=== PATIENT | female | born 1955 | race Caucasian/White ===

== ENCOUNTER 2016-06-14 00:17 | Day surgery (SDC) | payer OTHER ==
[~2016-06-14] VITALS: Ht 167.6 cm; Wt 80.9 kg
[~2016-06-14 00:17] MED LIST: AMLO5TAB2 PO; FLUC150T48 PO; MUPI22OI2 TOP; OXYC5TAB72 PO
[2016-06-14] MEDS ORDERED: Lactated Ringer's 1,000 ML IV SCH (05:00)
--- NOTE | 2016-06-14 15:57 | DRSVH ---
PROCEDURE: X-RAY KUB ([id number]) INDICATIONS: POST CONTRAST ADMINISTRATION TECHNIQUE: One view of the abdomen acquired. COMPARISON: [facility], CT, CT ABD PELVIS W CON, 05/30/2016, 12:08. [facility], CR, XR KUB, 06/06/2016, 14:15. [facility], CR, XR KUB, 09/12/2015, 12:19. FINDINGS: Surgical changes and devices: None. Bowel: Bowel gas pattern is normal. Small amount of residual enteric contrast is present. Soft tissues: No suspicious abdominal calcifications. Visualized solid organ contours appear normal in size. Bones: No suspicious bony lesions. IMPRESSION: No acute process. Enteric contrast is present. Dictated by: Kymberly Camacho M.D. on 06/14/2016 at 15:55 Approved by: Kymberly Camacho M.D. on 06/14/2016 at 15:56
[2016-06-14 17:45] VITALS: BP 153/77; PULSE 73; RESP 16; O2SAT 99
[2016-06-14] MEDS ORDERED: 0.9% Sodium Chloride 500 ML ONE (17:51)
--- NOTE | 2016-06-14 18:05 | NUR ---
VIC Patient brought to [facility] in WC from endo at 1720 for mendez placement. Friend at bedside. Patient denies pain. 16 English Mendez placed without problem. Patient to CT at 1755. Will discharge from [facility] when procedure complete.
--- NOTE | 2016-06-14 18:49 | DRSVH ---
PROCEDURE: CT ABDOMEN AND PELVIS WITH CONTRAST ([id number]) INDICATIONS: CT CYSTOGRAM TO EVALUATE FOR ENTEROVESICAL FISTULA TECHNIQUE: After the administration of intravenous contrast, 5 mm thick sections acquired from the diaphragm to the symphysis. 5 mm coronal and sagittal reformats were acquired. For radiation dose reduction, the following was used: automated exposure control, adjustment of mA and/or kV according to patient neftali kraft COMPARISON: [facility], CT, CT ABD PELVIS W CON, 05/30/2016, 12:08. FINDINGS: Image quality: Excellent. ABDOMEN: Lung bases: Lung bases are clear. Heart size is normal. Solid organs: Hepatic steatosis otherwise liver and spleen are normal in size and enhancement. Gallb ladder negative. Biliary system is non dilated. Pancreas enhances normally. No adrenal nodules. K idneys demonstrate normal size and enhancement, without hydronephrosis. Presumed bilateral renal cys ts although many of these are too small to characterize definitively. Peritoneum and bowel: There is a right-sided ostomy. No free fluid or free air. No bowel obstruction Nodes and vessels: No retroperitoneal or mesenteric adenopathy by size criteria. Aorta and inferior vena cava are normal in size. Miscellaneous: No ventral hernias. PELVIS: Genitourinary: Lawler catheter is present and the bladder is distended with contrast material. No def inite extraluminal contrast or contrast opacified tract to the bowel is identified. Uterine calcifica tions are noted presumably related to fibroids. Miscellaneous: No inguinal hernias or adenopathy. Bones: No suspicious bony lesions. No vertebral body compression fractures. IMPRESSION: No CT evidence of enterovesical fistula. Hepatic steatosis. Presumed bilateral renal cysts. Dictated by: Jimmy Salazar M.D. on 06/14/2016 at 18:42 Approved by: Jimmy Salazar M.D. on 06/14/2016 at 18:47
--- NOTE | 2016-06-14 20:01 | PCM.PNSURG ---
Subjective Visit Information: Reason for Visit Sigmoid Diverticulitis/Eval Enterovesical Fistula Surgery/Surgery Date Post-Op Day # Date of Admission: Hospital Day # Subjective: 60yof who had findings suggestive of enterovesical fistula on a contrast enema after sigmoid colectomy with diverting loop ileostomy. She has been stable. Contrast enema was poorly tolerated per rectum so she is here today to get enemas through the downstream lumen of her loop ileostomy to clear the residual contrast in her cecum in anticipation of CT cystogram later today. Objective Vital Sign- Last 8 Hours Date Time Temp Pulse Resp B/P Pulse Ox O2 Delivery O2 Flow Rate FiO2 06/14/16 17:45 36.5 73 16 153/77 99 Room Air General: Alert, Oriented X3, Cooperative Abdomen: Soft, Ostomy Assessment & Plan Impression Ileostomy present Problems: Plan One fleet enema was administered. KUB Xray revealed movement of contrast into the transverse colon but not complete evacuation. 3 additional fleet enemas were administered. CT cystogram was then performed successfully revealing no sign of enterovesical fistula. Nhi Christiansen MD Jun 14, 2016 20:01
[2016-09-27] MEDS ORDERED: PANT40TA3 PO (15:41)
[2016-09-27] MEDS ORDERED: OXYC1TAB24 PO (15:41)
[2016-09-27] MEDS ORDERED: GABA-502 PO (15:41)
[2016-09-27] MEDS ORDERED: FERR-83 PO (15:41)
[2016-09-27] MEDS ORDERED: LISI1TAB7 PO (15:41)
== END 2016-06-14 23:59 | disposition home or self-care (01) ==
LOC: SOUO 00:17
PROVIDERS: ATTEND Radiology Diagnostic Radiology
DX: R93.41 Abnormal radiologic findings on diagnostic imaging of renal pelvis, ureter, or bladder (principal); K57.32 Diverticulitis of large intestine without perforation or abscess without bleeding; Z93.2 Ileostomy status
CPT/HCPCS: 74000; 74177; Q9967

== ENCOUNTER 2016-09-16 18:40 | Emergency (ER) | payer OTHER ==
[~2016-09-16] VITALS: Ht 167.6 cm; Wt 85.5 kg
[2016-09-16 18:56] VITALS: BP 144/86; PULSE 67; RESP 20; O2SAT 99
--- NOTE | 2016-09-16 19:23 | ED.REPORT ---
HPI-Abd Pain F 40 and Over Date of Service September 16, 2016 ED Provider: Dr. Richard Richard D.O. A 60 year old female with a medical history including hypertension, GERD, and diverticulitis s/p sigmoid colectomy with ileostomy (03/2016) presents to the ED with pain around her ileostomy site onset two weeks ago. The pain is relieved with sitting. The patient recently began working, sooner than her surgeon recommended, and her job requires excessive walking and time on her feet. She is scheduled for a take-down of her ileostomy in the near future. The patient was seen at Urgent Care last week, with no relief. She denies hematochezia or other symptoms and her ileostomy pouch is draining normally. Nursing Notes Stated Complaint: OSTOMY PAIN Chief Complaint: Female Abdominal Pain Nursing Notes Reviewed: Yes Allergies: Coded Allergies: codeine (Verified Allergy, Severe, Itching, DIZZINESS, NAUSEA, 06/13/16) Scheduled Amlodipine (Amlodipine) 5 Mg Tablet 5 MG PO DAILY Fluconazole (Diflucan) 150 Mg Tablet 150 MG PO ONCE Mupirocin (Mupirocin Ointment) 22 Gm Oint...g. 1 APPLIC TOP BID Scheduled PRN oxyCODONE (oxyCODONE) 5 Mg Tablet 5 MG PO Q4H PRN PRN For Pain General Time Seen by MD: 19:22 Chief Complaint Abdominal pain (Around Ileostomy Site) Hx Obtained From: Patient Arrived By: Walk-in Sudden in Onset?: No Onset Occurred: More than a week ago... (2 weeks) Symptom Duration: Since onset Location: : RLQ Quality: Painful Severity: Current: Moderate Severity: Maximum: Moderate Relieved by: Certain positions (Sitting) Context Related History: Reports: Abdominal surgery, Diverticulosis, GERD Recent Healthcare: No recent doctor visit Past Medical History Past Medical History Hypertension Isolated seizure Diverticulitis GERD Sciatica Anxiety Depression Reports: Diverticulitis Past Surgical History 1. Laparoscopic converted to open sigmoid colectomy with primary anastomosis. 2. Laparoscopic splenic flexure takedown. 3. Excision of anastomosis. 4. Diverting loop ileostomy. 5. Rectus sheath block with Exparel. Reports: Smoking History Current Every Day Smoker, Unknown if Ever Smoker Social History Alcohol Use: "Social" Ambulatory Status Independent Review of Systems + Pain around her ileostomy site Constitutional: Denies: Fever Respiratory: Denies: Non-productive cough, Shortness of breath GI: Reports: Abdominal pain, Denies: Diarrhea, Hematochezia, Vomiting Complete sys rev & neg: except as marked. Physical Exam Vital Signs Vital Signs (First) Date Time Temp Pulse Resp B/P Pulse Ox O2 Delivery O2 Flow Rate FiO2 09/16/16 18:56 36.7 67 20 144/86 99 Room Air Initial VS: Reviewed Head / Eyes: Atraumatic, Normocephalic ENT: Conjunctiva normal, No scleral icterus Neck: Supple, Full range of motion Skin: Warm, Dry, No cyanosis Neurologic: Alert, Oriented, Nonfocal Psychiatric: Mood/affect normal, Behavior normal, Normal thought content General/Constitutional: Awake, Alert Respiratory / Chest: Breath sounds NL, Breath sounds = bilat, No respiratory distress Cardiovascular: Heart rate NL, Regular rhythm, Heart sounds NL Abdomen: Soft Patient is tender around her ostomy site but it is draining well and there are no signs of infection Interpretation & Diagnostics URINE DIPSTICK: Bedside Urine Specific [place] * 1.020 Bedside Urine pH * 5 Bedside Urine Leukocyte Esterase * Negative Bedside Urine Nitrite * Negative Bedside Urine Protein * Negative Bedside Urine Glucose * Normal Bedside Urine Ketones * Negative Bedside Urine Urobilinogen * Normal Bedside Urine Bilirubin * Negative Bedside Urine Occult Blood * Negative Urine to Lab * Yes Lab Results Interpretation Result Diagram: 09/16/16192409/16/161924 Test 09/16/16 19:25 White Blood Count 5.7th/mm3 (3.8-10.1) Red Blood Count 4.21mil/mm3 (3.90-5.20) Hemoglobin 13.0g/dL (12.0-15.6) Hematocrit 39.0% (35.0-46.0) Mean Corpuscular Volume 92.6fL (81-100) Mean Corpuscular Hemoglobin 30.9pg (27.0-35.0) Mean Corpuscular Hemoglobin Concent 33.3% (32.0-37.0) Red Cell Distribution Width 13.3% (12.3-15.4) Platelet Count 264bil/L (150-400) Neutrophils (%) (Auto) 52.2% (40-74) Lymphocytes (%) (Auto) 36.4% (14-46) Monocytes (%) (Auto) 8.4% (4-12) Eosinophils (%) (Auto) 2.6% (0-5) Basophils (%) (Auto) 0.4% (0-3) Sodium Level 135mEq/L (134-144) Potassium Level 4.2mEq/L (3.5-5.2) Chloride Level 96mEq/L (97-108) Carbon Dioxide Level 22mmol/L (18-29) Blood Urea Nitrogen 25mg/dL (8-27) Creatinine 0.71mg/dL (0.57-1.00) Estimat Glomerular Filtration Rate 120mL/min (>59) Glucose Level 101mg/dL (60-99) Calcium Level 9.7mg/dL (8.5-10.1) Magnesium Level 1.8mg/dL (1.6-2.6) Total Bilirubin 0.3mg/dL (0.0-1.2) Aspartate Amino Transf (AST/SGOT) 21U/L (0-50) Alanine Aminotransferase (ALT/SGPT) 27U/L (0-32) Alkaline Phosphatase 71U/L (25-165) Total Protein 7.8g/dL (6.4-8.4) Albumin 4.7g/dL (3.4-5.0) Lipase 43U/L (13-60) Hold Sifuentes Top Tube Received (Received) CT Abd / Pelvis Interpretation IMPRESSION: 1. No acute process. 2. Increased bowel containing right anterior abdominal wall parastomal hernia. No evidence of associated bowel strangulation, nor traction. No change in fat containing left anterior supraumbilical hernia. 3. Appendix not seen. No evidence of appendicitis. Dictated by: Kymberly Camacho M.D. on 09/16/2016 at 21:18 Study type: Abdominal CT IV contrast, Abdom CT oral contrast Interpretation / Wet Read by: Interpret - Radiologist Re-Eval/Medical Decision Source of Hx: Old records Re-Evaluation/Progress : Time of Eval: 21:35 Patient Status: Condition improved Re-Evaluation/Progress Note: Discussed with patient CT and lab results, diagnosis, and plan for discharge. Follow-up and return to the ER instructions given. Patient agrees with plan for care and all questions were addressed. Counseled Regarding: Diagnosis, Lab results, Need for follow-up, When/why to return to ED Discharge & Departure Primary Impression: Abdominal pain Abdominal location: generalized Qualified Code: R10.84 - Generalized abdominal pain Additional Impression: Parastomal hernia Obstruction and gangrene presence: without obstruction or gangrene Qualified Code: K43.5 - Parastomal hernia without obstruction or gangrene Disposition: Home Discharge Condition All VS Reviewed: Yes Condition: Improved Patient Instructions: Acute Abdominal Pain (ED) Additional Instructions: Thank you for entrusting us with your care. Your CT today showed a right anterior abdominal wall parastomal hernia. 1-2 Percocet every six hours as needed for pain. Do not drink alcohol, drive, or consume acetaminophen while taking Percocet. Call Dr. Christiansen's office tomorrow to schedule a follow-up appointment. Have her review the CT results. Return to the ER with any new or worsening symptoms. Referrals: Mihai Cid (PCP) Nhi Christiansen MD Attestation Portions of this note were transcribed by Georgia Moncada. I, Dr. Richard, personally performed the history, physical exam, and medical decision-making; I reviewed and confirmed the accuracy of the information in the transcribed note. Signed by: Jessica Anguiano, 09/16/2016, 22:00 copies to: Nhi Christiansen MD; Mihai Cid Todd P DO September 16, 2016 19:23 GEORGIA MONCADA September 16, 2016 19:34
[2016-09-16] MEDS ORDERED: HYDROmorphone 0.5 mg/0.5 mL iSecure Syringe IVPUSH PRN (19:40)
[2016-09-16] MEDS ORDERED: Ondansetron 2 mg/mL 2 mL Inj IVPUSH PRN (19:40)
[2016-09-16] MEDS ORDERED: Iohexol 300 mg/mL 30 mL Inj PO ONE (19:40)
[2016-09-16] MEDS ORDERED: 0.9% Sodium Chloride 1,000 ML IV ONE (19:40)
[2016-09-16 19:41] LABS: BASOPHILS % (AUTO) 0.4 % (0-3); EOSINOPHILS % (AUTO) 2.6 % (0-5); MONOCYTES % (AUTO) 8.4 % (4-12); Mean Corpuscular Hemoglobin 30.9 pg (27.0-35.0); Mean Corpuscular Volume 92.6 fL (81-100); NEUTROPHILS % (AUTO) 52.2 % (40-74); Platelet Count 264 bil/L (150-400)
[2016-09-16 20:07] LABS: Magnesium 1.8 mg/dL (1.6-2.6)
--- NOTE | 2016-09-16 21:22 | DRSVH ---
PROCEDURE: CT ABDOMEN AND PELVIS WITH CONTRAST ([id number]) INDICATIONS: right mid and lower abdominal pain TECHNIQUE: After the administration of oral and intravenous contrast, 5 mm thick sections acquired from the diap hragms to the symphysis. 5 mm thick coronal and sagittal reformats were performed. For radiation do se reduction, the following was used: automated exposure control, adjustment of mA and/or kV accordi ng to patient size. COMPARISON: [facility], CT, CT ABD PELVIS W CON, 06/14/2016, 18:09. FINDINGS: Image quality: Excellent. ABDOMEN: Lung bases: Lung bases are clear. Heart size is normal. Solid organs: Liver and spleen are normal in size and enhancement. Gallbladder is within normal card its. Biliary system is non-dilated. Pancreas enhances normally. No adrenal nodules. Kidneys are n ormal in size and enhancement, without hydronephrosis. Peritoneum and bowel: Stomach, small bowel, and colon loops are normal in caliber and wall thickness . No free fluid or air. Anastomotic clips at the rectosigmoid junction are present. Appendix not se en. No evidence of appendicitis. Nodes and vessels: No retroperitoneal or mesenteric adenopathy. Aorta and inferior vena cava are no rmal in caliber. Miscellaneous: There is increased bowel containing parastomal hernia involving the right anterior pel carly wall, currently measuring 66 mm. A fat containing left anterior supraumbilical hernia is present measuring 31 mm, as before. PELVIS: Genitourinary: Bladder wall thickness is normal. Miscellaneous: No inguinal hernias or adenopathy. Bones: No suspicious bony lesions. No vertebral body compression fractures. IMPRESSION: 1. No acute process. 2. Increased bowel containing right anterior abdominal wall parastomal hernia. No evidence of associa gordy bowel strangulation, nor traction. No change in fat containing left anterior supraumbilical herni a. 3. Appendix not seen. No evidence of appendicitis. Dictated by: Kymberly Camacho M.D. on 09/16/2016 at 21:18 Approved by: Kymberly Camacho M.D. on 09/16/2016 at 21:20
[2016-09-16] MEDS ORDERED: _oxyCODONE/APAP 5-325 mg Tablet PO PRN (21:35)
[2016-09-16 22:26] VITALS: BP 164/78; PULSE 77; RESP 18; O2SAT 98
[2016-09-27] MEDS ORDERED: OXYC1TAB24 PO (15:41)
[2016-09-27] MEDS ORDERED: GABA-502 PO (15:41)
[2016-09-27] MEDS ORDERED: PANT40TA3 PO (15:41)
[2016-09-27] MEDS ORDERED: LISI1TAB7 PO (15:41)
[2016-09-27] MEDS ORDERED: FERR-83 PO (15:41)
== END 2016-09-16 22:30 | disposition home or self-care (01) ==
LOC: SED 18:40
DX: K43.5 Parastomal hernia without obstruction or gangrene (principal); R10.84 Generalized abdominal pain; I10 Essential (primary) hypertension; K21.9 Gastro-esophageal reflux disease without esophagitis; F17.200 Nicotine dependence, unspecified, uncomplicated; Z87.19 Personal history of other diseases of the digestive system; Z90.49 Acquired absence of other specified parts of digestive tract; Z88.5 Allergy status to narcotic agent
CPT/HCPCS: 36415; 74177; 80053; 83690; 83735; 85025; 96361; 96374; 96375; 99285; J1170; J2405; J7030; Q9967

== ENCOUNTER 2016-10-03 06:19 | Inpatient (IN) | payer OTHER ==
[2016-10-03] VITALS (16 sets, daily range): BP systolic 113–151; BP diastolic 52–78; PULSE 49–84; RESP 13–20; O2SAT 96–100
[~2016-10-03] VITALS: Ht 167.6 cm; Wt 66.0 kg
[2016-10-03] MEDS: Lactated Ringer's 1,000 ML IV SCH ×3 (05:00→09:07)
[~2016-10-03 06:19] MED LIST changes: -AMLO5TAB2 PO; +CeFAZolin Inj 2 GM in IV Premix 1 EACH IV ONE; +FERR-83 PO; -FLUC150T48 PO; +GABA-502 PO; +LISI1TAB7 PO; -MUPI22OI2 TOP; +OXYC1TAB24 PO; -OXYC5TAB72 PO; +PANT40TA3 PO
[2016-10-03] MEDS ORDERED: CeFAZolin Inj 2 gm / 50mL D5W IV ONE (06:24)
[2016-10-03] MEDS ORDERED: Lactated Ringer's 1,000 ML IV SCH (08:03)
[2016-10-03] MEDS ORDERED: Lactated Ringer's 500 ML IV PRN (08:03)
[2016-10-03] MEDS ORDERED: Ondansetron 2 mg/mL 2 mL Inj IVPUSH PRN ×2 (08:05→10:55)
[2016-10-03] MEDS ORDERED: hydrALAZINE 20 mg/mL Inj IVPUSH PRN (08:05)
[2016-10-03] MEDS ORDERED: Labetalol 5 mg/mL 4 mL Inj IV PRN (08:05)
[2016-10-03] MEDS ORDERED: EPHEDrine Sulfate 50 mg/mL Inj IVPUSH PRN (08:05)
[2016-10-03] MEDS ORDERED: Dexamethasone 4 mg/mL Inj IVPUSH PRN (08:05)
[2016-10-03] MEDS ORDERED: MetoCLOpramide 5 mg/mL 2 mL Inj IVPUSH PRN ×2 (08:05→10:55)
[2016-10-03] MEDS ORDERED: Phenylephrine 10,000 mCg/mL Inj IVPUSH PRN (08:05)
--- NOTE | 2016-10-03 08:08 | PCM.HPANE ---
Patient Data Date of Service: October 03, 2016 Surgeon Admitting Provider: Attending Provider:Nhi Christiansen MD Primary Care Physician:Other,Physician Other Provider:Ottoniel Odell Anesthesia Reason for Visit Ileostomy In Place Ht/WT & BMI Height (Feet): 5 Height (Inches): 6.00 Weight (Kilograms): 86.7 Body Mass Index 30.00 Allergies Coded Allergies: codeine (Verified Adverse Reaction, Severe, Itching, DIZZINESS, NAUSEA, ) Past Anesthesia History Anesthesia History: Denies:: Abnormal Airway, Anesthesia Reactions, Difficult Intubation, Fam Anesthesia Reaction, Malignant Hyperthermia Diabetes History Hx Diabetes?: No Current Bedside Blood Glucose: 96 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 / CALF / COCCXY) Medications Hypertension Medication: Yes (LISINOPORIL/HCTZ) Home Meds Incl Beta Zay: No Reported Medications Lisinopril / HCTZ 10-12.5 mg 1 Each Tablet1 Each PO DAILY Ref 0 09/27/16 oxyCODONE-Acetaminophen 5-325 mg 1 Each Tablet1-2 Tab PO Q6H PRN For Pain Ref 0 09/27/16 Gabapentin 300 Mg [id number] Mg PO BID Ref 0 09/27/[address] 40 Mg Tablet.dr40 Mg PO DAILY Ref 0 09/27/16 Ferrous Sulfate 325 Mg [id number] Mg PO DAILY 30 Days Ref 0 09/27/16 Discontinued Reported Medications Mupirocin (Mupirocin Ointment)22 Gm Oint...g.1 Applic TOP BID #1 TUBE Ref 0 06/13/16 oxyCODONE 5 Mg Tablet5 Mg PO Q4H PRN For Pain Ref 0 06/13/16 Fluconazole (Diflucan)150 Mg [id number] Mg PO ONCE #1 TABLET Ref 0 06/13/16 Discontinued Scripts Amlodipine 5 Mg Tablet5 Mg PO DAILY 30 Days Ref 0 Prov:May Gilmore MD 09/12/15 History History of ENT Problems?: No HEENT History: Positive for:: Cataracts Denies:: Abnormal Airway Difficult Intubation Dysphagia Hearing Problem Sinus Problem TMJ Denture Type: None Teeth Condition: Within Normal Limits Other HEENT Pertinent History: S/P TONSILLECTOMY Hx of Heart Problems?: Yes Cardiovascular History: Positive for:: Hypertension Denies:: AICD Congestive Heart Failure Heart Murmur (past hx of - not heard recently) Irregular Heartbeat Pacemaker Other Cardiac History: HX OF ANEMIA Hx of Respiratory Problem?: Yes Respiratory History: Denies:: Asthma COPD Emphysema Oxygen Administration Pneumonia Tuberculosis Use of C-PAP Machine (SNORES) Hx Neurologic Problems?: Yes Neurological History: Positive for:: Headaches Seizures (many years ago- isolated incident) Denies:: Alzheimer's Disease CVA Dementia Dizziness Multiple Sclerosis Parkinson's Disease Hx of GI Problems?: Yes Other GI Pertinent History: C/OF INTERMITTANT ABD PAIN, N&V R/T PARASTOMAL HERNIA Hx of Problems?: Yes Genitourinary History: Positive for:: Urinary Tract Infection (past hx of- not current ) Denies:: HX of Hemodialysis Kidney Stones HX of Peritoneal Dialysis: No Female Hx: Denies:: Currently Endometriosis Pelvic Inflammatory Problems with Breasts? Skin History: Positive for:: History Skin Disorders? (HX CELLULITIS RT TOE, INTERTRIGO,TOENAIL ONYCHOMYCOSIS) Denies:: Pressure Ulcers Hx Musculoskeletal Problems?: Yes Musculoskeletal History: Positive for:: Back Injury (sciatica hx- getting worse-bilateral buttocks to back of thighs) Denies:: Joint Replacement Musculoskeletal Trauma Systemic Lupus Hx of Psycho/Social Problems?: Yes Psycho Social History: Positive for:: Anxiety (past hx of - not current on rx , not severe) Hx Depression Hx Surgeries?: Yes (C/S,TONSILLECTOMY,SIGMOID COLECTOMY W/ ILEOSTOMY) Hx Any Other Health Problems?: Yes Other History: Positive for:: Hospitalization Denies:: Cancer Endocrine Disease Thyroid Disease History Blood Transfusions: Denies:: Blood Transfusions Hx Diabetes: NoBedside Blood Glucose: 96 Hx Alcohol Use: YesAlcoholic Drinks Per Day: 2-3/DAY 5-7 DAYS/WEEKHx Substance Use: No Smoking Status: Current Every Day Smoker Unknown if Ever Smoker Have You Smoked inLast 12 mo: Yes Stop/Bang S-Snoring: Do You Snore Loudly: Yes T-Tired: feel tired, fatigued: No O-Obsered: Observed not breath: No P-Blood Pressure: treated: Yes B- Body Mass Index > 35 kg/m2: No A- Age over 50: Yes N- Neck Large Circumference: No G- Gender Male: No KAYY Total Score: 3 KAYY Risk Assessment: Low Risk, <3 Yes Risk Assessment Category Category 1A: Patient has history of documented sleep apnea, and HAS NOT received any narcotic, sedative or anesthesia administration during this stay. Category 1B: Patient has history of documented sleep apnea, and HAS received any narcotic , sedative or anesthesia administration during this stay Category 2: Patient has SUSPECTED Obstructive Sleep Apnea, and HAS received any narcotic , sedative or anesthesia administration during this stay. Category 3: Patient has SUSPECTED Obstructive Sleep Apnea and HAS NOT received narcotic, sedative or anesthesia administration during this stay. Category 4: Outpatient in Procedural Areas with known sleep apnea or who screen positive for High Risk via the STOP/BANG questionnaire. Exam Exam Vital Signs Vital Signs Date Time Temp Pulse Resp B/P Pulse Ox O2 Delivery O2 Flow Rate FiO2 10/03/16 06:54 36.2 69 16 128/78 99 Room Air General Appearance: Alert, Oriented X3, Cooperative, No Acute Distress HEENT/AIRWAY: MP 2 Lungs: Clear to Auscultation, Normal Air Movement Heart: Exam Unremarkable, Regular Rate/Rhythm, No Murmurs/Rubs/Gallops Meds/Labs/Diagnostics Admission Meds Current Medications Lactated Ringer's (Lr) 1,000 ml @ 120 mls/hr Q8H20M IV Last administered on t 06:24; Start 10/03/16 at 05:00; Stop 10/03/16 at 13:19 Bedside Blood Glucose: 96 Plan Impression Patient chart reviewed, patient interviewed and anesthestic plan with risks, benefits, and alternatives discussed, and informed consent obtained. NPO per Anesth. Guidelines: Yes ASA Physical Status: ASA2 Mod Systemic Disease Anesthetic Plan: GA Bene/Risks/Altern/Consents: Yes HP Complete Prior to Induction: Yes Ortiz Thomas MD October 03, 2016 08:08
[2016-10-03] MEDS ORDERED: Bupivacaine-MPF 0.25%/EPI 30 mL Inj INFILTRATE ONE (09:07)
--- NOTE | 2016-10-03 11:21 | PCM.ANEP1 ---
Post Anesthesia PACU Phase 1 Assessment Vital Signs Vital Signs Date Time Temp Pulse Resp B/P Pulse Ox O2 Delivery O2 Flow Rate FiO2 10/03/16 11:10 68 16 130/64 97 Nasal Cannula 3 10/03/16 11:05 66 14 139/63 97 Nasal Cannula 3 10/03/16 11:00 72 17 148/69 96 Nasal Cannula 3 10/03/16 10:55 36.4 73 15 151/73 96 Nasal Cannula 3 10/03/16 06:54 36.2 69 16 128/78 99 Room Air Anesthetic Administered: GA Level of Alertness: Sleepy, easy to arouse Pain: No Nausea or Vomiting: No CV Function & Hydration Stable: Yes Airway Device: Endotrachial Tube Oxygen Delivery: Room Air Lungs: Clear to Auscultation, Normal Air Movement PACU Phase 2 Assessment Complications: No Patient Instructions Provided: N/A Ortiz Thomas MD October 03, 2016 11:21
[2016-10-03] MEDS: fentaNYL-PF 50 mCg/mL 2 mL Inj IVPUSH PRN ×2 (11:27→11:40)
[2016-10-03 11:32] LABS: BASOPHILS % (AUTO) 0.1 % (0-3); EOSINOPHILS % (AUTO) 0.4 % (0-5); MONOCYTES % (AUTO) 2.7 % (4-12); Mean Corpuscular Hemoglobin 31.2 pg (27.0-35.0); Mean Corpuscular Volume 90.5 fL (81-100); NEUTROPHILS % (AUTO) 80.5 % (40-74); Platelet Count 259 bil/L (150-400)
--- NOTE | 2016-10-03 11:38 | OP ---
[address] [address] OPERATIVE REPORT PATIENT: SHIMON ELY : 1955 MR#: [id number] ADMIT: 10/03/2016 JOB ID: [id number] DATE OF SURGERY: 10/03/2016 PREOPERATIVE DIAGNOSIS(ES): Ileostomy POSTOPERATIVE DIAGNOSIS(ES): Ileostomy PROCEDURES PERFORMED: Takedown of diverting loop ileostomy with resection of ostomy and primary anastomosis. SURGEON: Nhi Christiansen M.D. NIGHT STOCKER: Brando Lovell PA-C; Radha Gr MS3. A surgical endoscopist was necessary for dissection and retraction. HISTORY OF PRESENT ILLNESS: This is a 60-year-old woman with repeated episodes of diverticulitis who underwent a sigmoid colectomy with diverting loop ileostomy approximately six months ago. At the time of surgery she required anastomotic revision and after a prolonged case with conversion to open, she had an inaccessible defect in the anastomosis on a leak test. Therefore at that time a diverting loop ileostomy was created. She recovered well and presented for ileostomy takedown after adequate healing of her anastomosis. FINDINGS: 1. Herniated loops of bowel were present, consistent with known parastomal hernia, and reduced. 2. [id number] stapled anastomosis. DESCRIPTION OF PROCEDURE: The patient was brought to the operating room and placed in supine position. General anesthesia was induced. Warming blanket and SCDs were placed. Antibiotics were infused. The operative field was prepped and draped in a sterile fashion after the ostomy was closed with a 2-0 silk. A preprocedural pause was performed to confirm the correct patient, procedure and site. A scalpel was used to carefully incise the edge of the ostomy from the skin. Ultimately the skin incision had to be extended by 1 cm on each side for adequate exposure of the fascia. The bowel was dissected off of surrounding adipose and fascial tissues. The edges of the fascia were freed up. There was an herniated loop of bowel above the fascia consistent with known parastomal hernia. The inferior edge of the fascia was also freed of adhesions to create an adequate platform for the stitches to close the fascia. A wound protector was inserted. The two edges of bowel which had formed the ostomy were then aligned. A [id number] anastomosis was created using a 55 mm AMELIA stapler with a blue load. The anastomosis was visually confirmed to be patent. The defect was then closed and ostomy removed with a firing of the TA 55 stapler with a blue load This staple line was oversewn with 2-0 silk interrupted stitches. The patency of the anastomosis was then manually confirmed. The bowel was then reduced. The fascia was closed using running 0 PDS with interrupted 2-0 PDS stitches every centimeter to prevent future recurrence of her hernia. Care was taken to avoid injury to the intra-abdominal bowel. The wound was then washed out. Interrupted 2-0 nylon stitches were then placed with iodine soaked Telfa aysha between them. A sterile dressing was placed. The patient was awakened from general anesthesia and taken to postoperative care unit in good condition. SPECIMENS: Ileostomy, discarded. ESTIMATED BLOOD LOSS: 5 mL. COMPLICATIONS: None. CHARLES
[2016-10-03] MEDS: HYDROmorphone 1 mg/mL Inj IVPUSH PRN ×2 (11:58→11:59)
[2016-10-03] MEDS ORDERED: Propofol 10,000 mCg/mL 20 mL Inj ONE (12:37)
[2016-10-03] MEDS ORDERED: Ondansetron 2 mg/mL 2 mL Inj ONE (12:37)
[2016-10-03] MEDS ORDERED: Rocuronium 10 mg/mL 5 mL Inj ONE (12:37)
[2016-10-03] MEDS ORDERED: Dexamethasone 4 mg/mL Inj ONE (12:37)
[2016-10-03] MEDS ORDERED: Lidocaine PF 1% 30 mL Inj ONE (12:37)
[2016-10-03] MEDS ORDERED: Glycopyrrolate 0.2 MG/ML 1mL Inj ONE (12:37)
[2016-10-03] MEDS ORDERED: Neostigmine 1 mg/mL 10 mL Inj ONE (12:37)
[2016-10-03] MEDS ORDERED: HYDROmorphone 1 mg/mL Inj IVPUSH PRN (13:15)
[2016-10-03] MEDS: HYDROmorphone PCA 0.2 mg/mL 30 mL Inj - Standard IV PRN (13:20)
[2016-10-03] MEDS: Dextrose 5% Lactated Ringer's 1,000 ML IV SCH ×2 (13:27→21:24)
--- NOTE | 2016-10-03 14:20 | NUR ---
Post Op Patient received to room 1004 s/p ileostomy takedown. Patient with right sided abd dressing cdi. patient rating pain 8/10 cramping, burning in nature. Patient started on scrap collector Dilaudid standard settings 0.2mg , q 10 min, 1.2 lockout. Patient still quite uncomfortable despite bolus dosing . Patient placed on continuous pulse ox.
[2016-10-03] MEDS: Acetaminophen IV 1,000 MG in IV Premix 1 EACH IV SCH ×2 (15:53→21:25)
[2016-10-03] MEDS: Heparin 5,000 Unit/mL Inj SUBQ SCH (16:28)
[2016-10-04] VITALS (9 sets, daily range): BP systolic 96–127; BP diastolic 60–74; PULSE 48–73; RESP 14–20; O2SAT 95–100
[2016-10-04] MEDS: Heparin 5,000 Unit/mL Inj SUBQ SCH ×3 (00:05→16:28)
--- NOTE | 2016-10-04 01:38 | NUR ---
Pain Patient A&OX3 and pleasant this evening. Rates pain 3-4/10 this evening. Pain has been pretty well controlled with JACKSCREW MAN Dilaudid .06/22/.2 and IV Tylenol Q6hr. Pt complains of slight nausea after using JACKSCREW MAN, but states that nausea improves shortly after. Has denied need for antiemetic at this time. Will continue to monitor, and continue Q1 hour checks.
[2016-10-04] MEDS: HYDROmorphone PCA 0.2 mg/mL 30 mL Inj - Standard IV PRN (03:19)
[2016-10-04] MEDS: Acetaminophen IV 1,000 MG in IV Premix 1 EACH IV SCH ×4 (03:31→16:24)
[2016-10-04 05:39] LABS: BASOPHILS % (AUTO) 0 % (0-3); EOSINOPHILS % (AUTO) 0 % (0-5); MONOCYTES % (AUTO) 7.9 % (4-12); NEUTROPHILS % (AUTO) 82.2 % (40-74); Platelet Count 258 bil/L (150-400)
--- NOTE | 2016-10-04 06:23 | NUR ---
Urine output Output this shift 0.23ml/kg/hr. MD notified. No new orders at this time. Care continues
[2016-10-04] MEDS: Dextrose 5% Lactated Ringer's 1,000 ML IV SCH ×2 (07:53→13:55)
--- NOTE | 2016-10-04 08:44 | PCM.PNSURG ---
Subjective Visit Information: Reason for Visit Ileostomy In Place Surgery/Surgery Date ILEOSTOMY TAKEDOWN 10/03/16 Post-Op Day # Date of Admission: October 03, 2016 at 12:36 Hospital Day # Subjective: Stable overnight. 750mL UOP/24H. No BM/flatus. Tolerated ~900 mL of sips and chips. Mild nausea, no vomiting. Objective Vital Sign- Last 8 Hours Date Time Temp Pulse Resp B/P Pulse Ox O2 Delivery O2 Flow Rate FiO2 10/04/16 04:29 36.4 73 16 109/68 99 Nasal Cannula 2.00 Intake and Output- Last 8 Hour 10/04/16 Cumulative From/Thru 07:00 09/27/16 15:41 - 10/04/16 06:15 Intake Total 2123 ml 2923 ml Output Total 500 ml 755 ml Balance 1623 ml 2168 ml Intake Oral 200 ml 200 ml IV Total 1923 ml 2723 ml Output Urine Total 500 ml 750 ml Estimated Blood Loss 5 ml # Bowel Movements 0 0 General: Alert, Oriented X3, Cooperative, No Acute Distress Abdomen: Soft, Appropriately tender, Other (dressing is c/d/i) Result Diagram: 10/04/16 0500 10/04/16 0500 Assessment & Plan Impression POD1 ileostomy takedown doing well Problems: Plan Transition to oral pain meds Continue home meds by mouth Ambulation Decrease MIVF to 80/h d/c mendez Await return of bowel function Dispo: floor today Nhi Christiansen MD October 04, 2016 08:44
[2016-10-04] MEDS: Pantoprazole 40 mg ER24 Tablet PO SCH (09:23)
--- NOTE | 2016-10-04 13:13 | NUR ---
Cardiac 11:15 Francisco (40s-50s) and irregular. Dizzy and pale with standing, although she had ambulated in hallway earlier today. Slightly hypotensive. (see VS flow sheet) Asymptomatic at rest. paged, 12 lead obtained, placed on tele and LR bolus given. Per traffic monitor specialist: Sinus francisco 59. 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
[2016-10-04] MEDS ORDERED: Lactated Ringer's 500 ML IV ONE (14:25)
--- NOTE | 2016-10-04 15:37 | NUR ---
Social Work-Brief Note Data: EMR reviewed. Pt is a 60 year old female admitted 10/03/[address] per H&P. Pt is POD 1. Pt's mendez was removed today but pt continues to be NPO. Pt's insurance is [facility] Healthcare Management Admin and PCP is Wili Hernandez MD at [facility]. SW met with pt at bedside regarding discharge plan, SW role explained. Pt alert and oriented x3. Pt resides on [address] with her sister and another roommate where she is independent at baseline. Pt's listed NOK is sister Aliya Marion [phone]. Pt provided verbal agreement to have SW speak with Aliya. Pt has no DPOA identified, SW provided paperwork at bedside. Pt anticipated to discharge home with sister or friends to transport via POV. No discharge needs identified at this time. SW provided phone number and plan on whiteboard. SW will continue to follow. Assessment: Pt who is independent at baseline. Plan: Pt anticipated to discharge home with sister or friends to transport via POV. No discharge needs identified at this time. SW will continue to follow. Nayely Pereira MSW
[2016-10-05] VITALS (9 sets, daily range): BP systolic 112–153; BP diastolic 69–82; PULSE 59–75; RESP 16–20; O2SAT 95–99
[2016-10-05] MEDS: Heparin 5,000 Unit/mL Inj SUBQ SCH ×3 (00:45→17:11)
--- NOTE | 2016-10-05 02:55 | NUR ---
Pain Med Regimen Patient states that Tylenol seems to be managing pain well with the use of 10mg oxycodone. paged, requesting Tylenol to be added to medication regimen since the IV Tylenol had been discontinued. Received order for 650mg Tylenol Q6hr PRN. This evening, patient experienced an episode of severe abdominal pain/cramping. Occurred around the same time that patient started to pass gas. 10mg Oxycodone given, and upon reassessment patient states pain has improved slightly. Will continue to monitor pain, and continue Q1 hour checks.
[2016-10-05] MEDS: Dextrose 5% Lactated Ringer's 1,000 ML IV SCH ×2 (04:51→17:10)
[2016-10-05 06:00] LABS: Mean Corpuscular Hemoglobin 30.7 pg (27.0-35.0)
[2016-10-05] MEDS: Pantoprazole 40 mg ER24 Tablet PO SCH (06:26)
--- NOTE | 2016-10-05 09:11 | PCM.PNSURG ---
Subjective Date of Service: October 05, 2016 Date of Service: October 05, 2016 Visit Information: Reason for Visit Ileostomy In Place Surgery/Surgery Date ILEOSTOMY TAKEDOWN 10/03/16 Post-Op Day # 2 Date of Admission: October 03, 2016 at 12:36 Hospital Day # 3 Subjective: She was feeling well yesterday, attempted to ambulate in the halls and subsequently got very dizzy with resultant hypotension and bradycardia. This resolved after she lay back down in her bed though she was instructed to not attempt ambulation again yesterday. She was placed on telemetry which showed sinus rhythm with fluctuating rate from high 40s to mid 90s overnight, no other events reported. Overnight she developed abdominal pain in her left and right lower quadrants, requiring more pain medication. An approximately 2000 hrs. she began passing gas which would reduce her abdominal pain somewhat and this continued until about midnight when she passed a large amount of gas with significant relief of her abdominal pain. Today she feels somewhat better when laying in bed, abdominal pain as a 4 out of 10. Nausea mostly resolved, good urine output. No bowel movement as of yet. Vital signs stable, afebrile, leukocytosis resolved. She \would like to advance her diet today. Objective Vital Sign- Last 8 Hours Date Time Temp Pulse Resp B/P Pulse Ox O2 Delivery O2 Flow Rate FiO2 10/05/16 08:16 36.9 65 18 138/72 97 Room Air 10/05/16 07:51 67 10/05/16 05:47 75 10/05/16 04:15 36.6 67 16 135/80 95 Room Air 10/05/16 03:52 59 Intake and Output- Last 8 Hour 10/05/16 Cumulative From/Thru 07:00 09/27/16 15:41 - 10/05/16 06:23 Intake Total 763 ml 5266 ml Output Total 770 ml 3125 ml Balance -7 ml 2141 ml Intake Oral 0 ml 200 ml IV Total 763 ml 5066 ml Output Urine Total 770 ml 3120 ml Estimated Blood Loss 0 ml 5 ml # Bowel Movements 0 General: Alert, Oriented X3, Cooperative Lungs: Clear to Auscultation, Normal Air Movement Heart: Exam Unremarkable, Regular Rate/Rhythm, No Murmurs/Rubs/Gallops Abdomen: Appropriately tender (mildly tender to palpation) SURGICAL WOUND : Wound General Appearence: No Erythema, No Discharge Dressing & Drainage Status: Saturated, No Purulent Drainage Catheters: None Result Diagram: 10/05/16 0450 10/04/16 0500 Assessment & Plan Impression Impression POD2 ileostomy takedown Plan Continue with oral pain meds Continue home meds PO Ambulation, with 1 person assist to monitor dizziness/hemodynamic state Advance diet as tolerated, start full liquids today D/C MIVF 80/h, after evidence of pt tolerating advancement in diet Await return of bowel function Dispo: remain on floor Problems: Attending Statement: I agree with Dr. Armenta's assessment and plan. TERELL ARMENTA DO October 05, 2016 09:10 Heraclio Torres MD October 10, 2016 15:48
[2016-10-05] MEDS: Polyethylene Glycol (PEG) 17 Gm Powder PO PRN (13:10)
--- NOTE | 2016-10-05 14:39 | PCM.DISURG ---
Surgical Discharge Instruction Date of Service October 05, 2016 Dates of Hospitalization Date of Hospital Admission October 03, 2016 at 12:36 Providers Admitting Physician: Nhi Christiansen MD Primary Care Physician: Other,Physician Attending Physician: Nhi Christiansen MD Discharge Diagnosis Discharge Diagnosis Ileostomy Post Operative diagnosis Ileostomy status post takedown of diverting loop ileostomy with resection of ostomy and primary anastomosis and parastomal hernia repair Diet Discharge Diet: No restrictions Activity Discharge Activity-General: Balance rest and activity, No lifting >15 pounds for 2 weeks, No driving while taking narcotic, May drive in (2 weeks and after clearance from Surgery clinic follow up.) Dressing and Incisional Care Hygiene: May shower, DO NOT soak incision under water, NO bathtub, hot tub or whirlpool Follow Up Plan Follow-up Provider (F9): Nhi Christiansen MD Follow-up appointment: Weeks (2) Call your provider for: Fever, Chills, Increasing abdominal pain, Nausea, Vomiting, Wound redness, Increasing wound pain, Warmth to touch, Discharge @ incision, pus discharge Nicholas Lovell PA-C October 05, 2016 14:39
--- NOTE | 2016-10-05 17:39 | NUR ---
Pain/Mobility Pt with continuous abd pain; receiving PO 10mg Roxicodone and 650mg PO Tylenol; as they become available. States 4/10 is tolerable but barely. Was able to nap this shift. Up ambulating in room to BR and out into hallway twice. No issues with dizziness/lightheaded/bradycardia. Pt also passing flatus and having liquid stool output at 1730. Up to chair and wanting to walk into hallway again. Await dinner. Care continues.
[2016-10-06] VITALS (7 sets, daily range): BP systolic 125–162; BP diastolic 71–90; PULSE 61–86; RESP 18–20; O2SAT 94–98
[2016-10-06] MEDS: Heparin 5,000 Unit/mL Inj SUBQ SCH ×3 (00:51→16:18)
[2016-10-06 05:19] LABS: BASOPHILS % (AUTO) 0.1 % (0-3); EOSINOPHILS % (AUTO) 1.3 % (0-5); MONOCYTES % (AUTO) 8.1 % (4-12); Mean Corpuscular Hemoglobin 30.8 pg (27.0-35.0); NEUTROPHILS % (AUTO) 55.8 % (40-74); Platelet Count 250 bil/L (150-400)
--- NOTE | 2016-10-06 05:59 | NUR ---
Pain/ ambulating Patient ambulating independently with SBA for safety. Tolerating full liquid will advance to General this am. Pain reported at tolerable levels other than with activity. BS 96 HS. Tele SR 73 occasional PVC's Saline locked. Bed in low position call light within reach, intentional rounding for safety.
--- NOTE | 2016-10-06 09:23 | PROG NOTE ---
[address] [address] PROGRESS NOTE PATIENT: SHIMON ELY : 1955 MR#: [id number] ADMIT: 10/03/2016 JOB ID: [id number] DATE: 10/06/2016 SUBJECTIVE: The patient is seen postoperative day three from her takedown of loop ileostomy. The patient is doing well. She had a small bowel movement yesterday. She was able to sense this and control that with no incontinence. She has been tolerating a liquid diet. She has remained afebrile, hemodynamically normal. This morning she is alert, oriented and comfortable. Her incision is inspected. The aysha were removed and there is a little bit of purulent old blood that drained. There is no erythema. LABORATORY STUDIES: Her white blood cell count is normal today at 6.8. Her hematocrit is good at 35.9. ASSESSMENT AND PLAN: This is a 60-year-old female, postoperative day three from takedown of loop ileostomy. Overall, she is doing well. I think it is a little too early for discharge. I encouraged her to go very slow with the diet until she is having regular bowel movements. I am optimistic that perhaps she can be discharged tomorrow. Her IV fluids can be stopped.
[2016-10-06] MEDS: Pantoprazole 40 mg ER24 Tablet PO SCH (09:28)
[2016-10-06] MEDS: Dextrose 5% Lactated Ringer's 1,000 ML IV SCH (11:43)
--- NOTE | 2016-10-06 16:02 | NUR ---
Mobility/Dressing Pt up ambulating in hallway and in room, continues to c/o pain and splints with ambulation. States feeling 'like my insides are going to fall out.' Pain has been present but well managed rotating between percocet and tylenol PO; is aware of when doses are available and requests pain medications as they are available. Dressing placed lightly over incision site. Post packing removal by Dr. Pace, continues to weep. Pt replacing dry gauze once saturated. Care continues.
[2016-10-06] MEDS: Polyethylene Glycol (PEG) 17 Gm Powder PO PRN (16:22)
[2016-10-07] VITALS (8 sets, daily range): BP systolic 142–155; BP diastolic 73–85; PULSE 56–81; RESP 14–20; O2SAT 94–99
[2016-10-07] MEDS: Heparin 5,000 Unit/mL Inj SUBQ SCH ×3 (00:11→17:53)
[2016-10-07] MEDS: Pantoprazole 40 mg ER24 Tablet PO SCH (05:27)
[2016-10-07] MEDS: Dextrose 5% Lactated Ringer's 1,000 ML IV SCH ×2 (06:59→23:50)
[2016-10-07] MEDS: Polyethylene Glycol (PEG) 17 Gm Powder PO PRN (08:34)
--- NOTE | 2016-10-07 09:25 | PROG NOTE ---
[address] [address] PROGRESS NOTE PATIENT: SHIMON ELY : 1955 MR#: [id number] ADMIT: 10/03/2016 JOB ID: [id number] DATE: 10/07/2016 SUBJECTIVE: The patient is seen in followup for her recent takedown of loop ileostomy. Overnight, she had an additional bowel movement, but she is still having some mild nausea. Her pain is well controlled with oral pain medications. She has remained afebrile. Hemodynamically normal. This morning, she is alert oriented and comfortable. Her incision is inspected and looks fine with no erythema and minimal drainage. ASSESSMENT AND PLAN: This is a 60-year-old female, status post takedown of loop ileostomy this past Saturday and was having slow return of bowel function. At this point, we agreed to keep her for least another day to allow her bowel some more time to wake up. I encouraged her to continue to go slow on the diet. I am optimistic that maybe she can get out of here tomorrow.
--- NOTE | 2016-10-07 19:17 | NUR ---
GI Pt continues to pass flatus, encouraging ambulation in hallways - pt performing, drank Miralax dose this shift. Pt with soft but formed multiple small/circular dime sized stool. Pt did c/o of "rectal pain" but stated that it felt like pressure as though there was blockage/stool/gas with additional pressure behind it. Pt ambulated in hallway post pain medication. At end of shift, pt stated decreased pain at rectum. Continues to make needs known - pain down to 3/10. Care continues.
[2016-10-08] MEDS: Heparin 5,000 Unit/mL Inj SUBQ SCH ×2 (00:18→08:32)
--- NOTE | 2016-10-08 02:55 | NUR ---
Diet Patient voiced concern about diet. States tomato soup has been the only food offered from kitchen and that she is very hungry. This RN printed out an educational packet on full liquid diets. This gave the patient a better understanding of what was ok and not ok to eat. There remains many questions regarding her diet, patient asked about a possible consult with a pet care attendant. Will pass on information to oncoming nurse, so that meals can be more enjoyable for this patient. Care continues.
[2016-10-08 05:45] VITALS: BP 155/74; PULSE 68; RESP 20; O2SAT 96
[2016-10-08] MEDS: Polyethylene Glycol (PEG) 17 Gm Powder PO PRN (08:30)
[2016-10-08] MEDS: Pantoprazole 40 mg ER24 Tablet PO SCH (08:31)
--- NOTE | 2016-10-08 08:59 | PCM.DISURG ---
Surgical Discharge Instruction Date of Service October 08, 2016 Dates of Hospitalization Date of Hospital Admission October 03, 2016 at 12:36 Providers Admitting Physician: Nhi Christiansen MD Primary Care Physician: Other,Physician Attending Physician: Nhi Christiansen MD Discharge Diagnosis Post Operative diagnosis Ileostomy status post takedown of diverting loop ileostomy with resection of ostomy and primary anastomosis and parastomal hernia repair Activity Discharge Activity-General: Balance rest and activity, No lifting >15 pounds for 2 weeks, No driving while taking narcotic, May drive in (2 weeks and after clearance from Surgery clinic follow up.) Follow Up Plan Follow Up Plan F/U FOR SUTURE REMOVAL IN 3-5 DAYS Follow-up Provider (F9): Nhi Christiansen MD Follow-up appointment: Weeks (2) Call your provider for: Fever, Chills, Increasing abdominal pain, Nausea, Vomiting, Wound redness, Increasing wound pain, Warmth to touch, Discharge @ incision, pus discharge Jona Pace MD October 08, 2016 08:59
[2016-10-08] MEDS ORDERED: OXYC5TAB72 PO (09:00)
--- NOTE | 2016-10-08 10:32 | PROG NOTE ---
[address] [address] PROGRESS NOTE PATIENT: SHIMON ELY : 1955 MR#: [id number] ADMIT: 10/03/2016 JOB ID: [id number] DATE: 10/08/2016 SUBJECTIVE: The patient is seen in followup for her takedown of loop ileostomy. She tells me that she had a bowel movement this morning. She is feeling quite well. She would like to go home. OBJECTIVE: She has remained afebrile and hemodynamically normal over the last 24 hours. This morning she is alert oriented and comfortable. Her incision inspected and looks clean, dry, and intact with minimal drainage. ASSESSMENT AND PLAN: This is a 60-year-old female almost a week out from a loop ileostomy take down. Overall, she is doing well. I think she can go home. I cautioned her to continue to go slow with the diet. She will follow up later this week for suture removal.
--- NOTE | 2016-10-08 11:52 | NUR ---
Social Work: Discharge D: EMR reviewed. Pt is on day 5 of hospitalization. Pt to discharge home with sister or friends to transport via POV. No discharge needs identified at this time. SW will continue to follow. A: Pt who is independent at baseline. P: Pt to discharge home with sister or friends to transport via POV. No discharge needs identified at this time. SW will continue to follow. KAYLEE Encarnacion
--- NOTE | 2016-10-08 13:41 | NUR ---
Discharge Pt to be discharged to home with sister; awaiting sister for pickup. Pt is A&Ox3, ALMENDAREZ, IV dc'd intact, Incision site continues to drain serous fluid - decreased from previous days (extra dressing/gauze provided at discharge) - sutures intact/no redness or signs of infection/gauze placed over top for drainage, Tele removed, Pt medicated prior to discharge with 10mg Roxycodone and 650mg Tylenol. Hard copy script provided to pt. CareNotes and instructions provided on dc dx, diet advancement, Rx medication and s/sx to seek medical attention for. Encouraged pt to thoroughly read through information upon return home. All personal belongings packed and ready to go. No questions/concerns left unanswered at time of dc instructions. Addendum: 10/08/16 at 1355 by BRIDGER SÁNCHEZ RN Wheeled out to vehicle to meet sister ; pt gone at 1355 - all personal belongings in hand.
--- NOTE | 2016-10-09 09:21 | PCM.DC.SUR ---
Discharge Summary Date of Service: Date of Hospital Admission: October 03, 2016 at 12:36 Date of Operation(s): 10/03/2016 Date of Discharge: 10/08/2016 Diagnosis at Time of Discharge Primary diagnosis: Diverticulitis Other chronic conditions: 1. GERD 2. Anemia 3. Hypertension 4. Former cigarette smoker Problems: Operation Takedown of diverting loop ileostomy with resection of ostomy and primary anastomosis Brief History and Physical: This is a 60-year-old woman with repeated episodes of diverticulitis who underwent a sigmoid colectomy with diverting loop ileostomy approximately six months prior to admission. At the time of surgery she required anastomotic revision and after a prolonged case with conversion to open, she had an inaccessible defect in the anastomosis on a leak test. Therefore at that time a diverting loop ileostomy was created. She recovered well and presented for ileostomy takedown after adequate healing of her anastomosis. Consultants: None Hospital Course: The patient was admitted and underwent the above-mentioned operations without complication. On her first postsurgical day she experienced orthostatic hypotension with syncope. This responded well with rest and lying back down. The following day she felt much more stable and ambulation was again initiated. The patient began passing flatus on her second postsurgical day and was having small bowel movements on her third postsurgical day. The remainder of her hospitalization consisted of observation for bowel function to normalize. Pathology: None Disposition: The patient was discharged to home on her fifth postsurgical day. At the time of discharge the patient was having normalized bowel movements, eating a diet with no nausea or vomiting, pain was well controlled on oral analgesic, she was ambulating independently, and her wounds were dry and intact. Follow-up Plan: She will follow-up in the office with Dr. Christiansen in 2 weeks. Ferrous Sulfate (Ferrous Sulfate) 325 Mg Tablet 325 MG PO DAILY (Reported) Lisinopril / HCTZ 10-12.5 mg (Lisinopril / HCTZ 10-12.5 mg) 1 Each Tablet 1 EACH PO DAILY (Reported) Pantoprazole DR (Pantoprazole DR) 40 Mg Tablet.dr 40 MG PO DAILY (Reported) oxyCODONE (oxyCODONE) 5 Mg Tablet 5-10 MG PO Q4H PRN PRN For Moderate Pain oxyCODONE-Acetaminophen 5-325 mg (oxyCODONE-Acetaminophen 5-325 mg) 1 Each Tablet 1-2 TAB PO Q6H PRN PRN For Pain (Reported) copies to: Beka Bell MD, PA-C October 09, 2016 09:21
== END 2016-10-08 13:51 | disposition home or self-care (01) | DRG 331 ==
LOC: SAS 06:19 → OSC 12:36 → SAS 12:36 → OSC 12:36
PROVIDERS: ADMIT Surgery; ATTEND Surgery
PROC: 0WQF0ZZ Repair Abdominal Wall, Open Approach (ICD-10-PCS; 2016-10-03)
PROC: 0DQB0ZZ Repair Ileum, Open Approach (ICD-10-PCS; principal; 2016-10-03 08:30)
DX: Z43.2 Encounter for attention to ileostomy (principal); K43.5 Parastomal hernia without obstruction or gangrene; I10 Essential (primary) hypertension; K21.9 Gastro-esophageal reflux disease without esophagitis; Z87.891 Personal history of nicotine dependence